=== PATIENT | female | born 1945 | race Caucasian/White ===

== ENCOUNTER → 2019-03-21 | Outpatient (CLI) | payer MEDICARE, OTHER ==
--- NOTE | 2019-03-22 14:33 | SLEEP ---
[address] [address] SLEEP STUDY REPORT Name: CRUZ LEÓN Room: [facility]#: [id number] Admission: 03/21/19 Attend Phys: Alcira Workman Discharge: Date of : 43 Report #: [id number] THIS REPORT FOR: //name// CC: Dr. Rand Minor FAM unknown Rand Minor This study has been reviewed in its entirety by a board certified sleep specialist DATE OF SERVICE: 03/21/2019 SLEEP STUDY REFERRING PHYSICIAN: Dr. Rand Minor. The patient is a 73-year-old who weighs 185 pounds with a BMI of 33.8. The patient's [place] score was 11. The patient had previous home sleep study and was found to have moderate LUISANA at an AHI of 24 per hour. The patient returned for in-lab CPAP titration study. During the night study, the patient spent 440 minutes in bed and slept for 263 minutes with a sleep efficiency of 59%. Sleep latency was 55 minutes with an absent REM sleep. Sleep architecture showed normal stage 1 sleep, increased stage 2 sleep, increased slow wave and absent REM sleep. EKG monitoring revealed an average heart rate of 51 beats per minute. No sustained arrhythmias observed. PLMS were seen at an index of 10 per hour and 1 per hour caused EEG arousals. The patient was started on CPAP, but she could not tolerate CPAP, as a result, she was switched to BiPAP at a pressure of 8/5 and titrated up to 15/7. At that final pressure, the patient slept for 71 minutes. The patient had supine sleep mostly, but no REM sleep. The patient's AHI was reduced to 0 per hour and oxygen saturation remained above 92%. IMPRESSION: 1. Sleep apnea diagnosed by previous home sleep study. 2. No clinically significant periodic limb movements of sleep. 3. Reduced sleep efficiency resulting from sleep maintenance insomnia. RECOMMENDATIONS: 1. BiPAP at a pressure of 15/7 completely eliminated the patient's sleep apnea and should be used on a nightly basis. 2. Follow up in 4-6 weeks to assess compliance with BiPAP [place] [address] SLEEP STUDY REPORT Name: CRUZ LEÓN Room: [facility]#: [id number] Admission: 03/21/19 Attend Phys: Alcira Workman Discharge: Date of : 43 Report #: [id number] clinical improvement. 3. Weight loss is advised. 4. Avoid MACH[employer]CE [employer] depressants. 5. Cautioned regarding driving until symptoms of sleep apnea resolve with the use of BiPAP. 6. If patient's insomnia persists despite effective use of BiPAP, then it should be treated according to the etiology. <ELECTRONICALLY SIGNED> By: Pravin Sloan MD 03/22/19 [id number] Sloan MD /domenica
== END ==
LOC: M.SLEEPLAB 19:54
DX: G47.30 Sleep apnea, unspecified (principal)